=== PATIENT | female | born 1975 | race Caucasian/White ===

== ENCOUNTER 2020-02-15 12:42 | Emergency (ER) | payer OTHER, SELFPAY ==
[2020-02-15 12:51] VITALS: BP 137/90; PULSE 77; RESP 16; TEMP 36.9; O2SAT 100
--- NOTE | 2020-02-15 12:54 | ED.URI ---
HPI - URI/Sore Throat General Chief Complaint: Asthma Stated Complaint: difficulty breathing Time Seen by Provider: 02/15/20 12:54 Source: patient and RN notes reviewed Mode of arrival: ambulatory Limitations: no limitations History of Present Illness HPI Narrative: 45-year-old female who presents to [facility] care with complaints of increased shortness of breath and feelings of tightness for the past 10 days with increase in symptoms for the past 3 days. Patient states that she had covid in December with mainly GI symptoms, fatigue, body aches and loss of taste and smell. Patient states that she has had asthma since she was a child and does have a nebulizer machine at home but has not used it , but for the last 3 days her inhaler has given her less and less relief of asthma symptoms. Patient states that she has worse symptoms at night with noted wheezing then and tightness in chest with breathing. Patient denies any nasal congestion or drainage, no sore throat, fevers, chills or sweats. MD elicited complaint: other (increased dyspnea, wheezing and chest tightness) Pertinent past history: asthma Onset (ago): day(s) () Consistency: progressively worsening (past 3 days) Severity: moderate Description of mucous: clear Able to tolerate fluids by mouth: Yes Exacerbating factors: exertion and deep breaths Relieving factors: other (inhaleer and rest) Associated symptoms: shortness of breath Treatments prior to arrival: other (inhaler) Related Data Home Medications Medication Instructions Recorded Confirmed Ventolin HFA 02/15/20 omeprazole 02/15/20 02/15/20 sertraline mg 02/15/20 Allergies Allergy/AdvReac Type Severity Reaction Status Date / Time No Known Allergies Allergy Unverified 07/30/14 15:03 Review of Systems Review of Systems: Narrative: CONSTITUTIONAL: Denies fever, chills, or sweats. EYES: Denies visual changes, redness, or discharge. ENT: Denies rhinorrhea, congestion, sore throat, or otalgia. CARDIOVASCULAR: Denies chest pain, palpitations, or edema. RESPIRATORY: Positive cough or dyspnea increase GASTROINTESTINAL: Denies abdominal pain, nausea, vomiting, or diarrhea. GENITOURINARY: Denies dysuria or hematuria. SKIN: Denies rash or itching. MUSCULOSKELETAL: Denies back pain, joint pain, or myalgia at present NEUROLOGIC: Denies headache, numbness, or weakness. PSYCHIATRIC:positive history of anxiety or depression. All systems reviewed & are unremarkable except as noted in HPI and below PMFSH Past Medical History Medical History (Updated 02/15/20 @ 13:16 by Sade Light NP) Anxiety and depression Asthma GERD (gastroesophageal reflux disease) Hypothyroid induced hypertension Surgical History Surgical History (Updated 02/15/20 @ 13:01 by Sade Light NP) Hx of cholecystectomy Family History Family History (Updated 02/15/20 @ 13:05 by Sade Light NP) Father Diabetes mellitus Grandparent Cerebrovascular accident Sibling Heart disease Social History Social History (Updated 02/15/20 @ 13:01 by Sade Light NP) Smoking status: Never smoker Alcohol intake: current Substance use: never Living arrangements: with family Gender identity (if verbalized by the patient): Female Comments At time of signature, agree with nursing past medical, surgical, social and family history. There is no relevant family history pertinent to the presenting complaint Exam Narrative: Exam Narrative: GENERAL: Well-appearing, well-nourished, and in no acute distress. HEAD: Normocephalic, atraumatic. EYES: PERRLA and EOMI. ENT: Nares clear, no rhinorrhea or epistaxis. Mucous membranes moist.Tm's normal with good light reflex, throat pink with no exudates or lesions no tonsil enlargement. NECK: Supple.no lymphadenopathy CHEST: Clear to auscultation. No respiratory distress.SAO2 100% , increase tightness with breathing and dyspnea with exertion HEART: Regular rate and rhythm. N
== END 2020-02-15 13:25 | disposition home or self-care (01) ==
PROVIDERS: Emergency Provider Registered Nurse
DX: J45.41 Moderate persistent asthma with (acute) exacerbation (principal); Z86.19 Personal history of other infectious and parasitic diseases; F41.9 Anxiety disorder, unspecified; F32.9 Major depressive disorder, single episode, unspecified; K21.9 Gastro-esophageal reflux disease without esophagitis; E03.9 Hypothyroidism, unspecified
CPT/HCPCS: 99213; G0463

== ENCOUNTER 2021-11-22 09:01 | Emergency (ER) | payer OTHER, SELFPAY ==
--- NOTE | 2021-11-22 09:28 | ED.FEMALEGU ---
HPI - Female Genitourinary General Chief complaint: Urogenital-Female Stated complaint: UTI SYMPTOMS Time Seen by Provider: 11/22/21 09:46 Source: patient, RN notes reviewed and old records reviewed Mode of arrival: ambulatory Limitations: no limitations History of Present Illness HPI Narrative: 46-year-old female presents to the [facility] with complaints of discomfort with urination, suprapubic pain, urinary incontinence last night. Denies any history of UTIs. Denies chest pain or shortness of breath. No CVA tenderness. Denies fevers. MD elicited complaint: UTI Related Data Home Medications Medication Instructions Recorded Confirmed sertraline 100 mg tablet 100 mg PO DAILY 02/15/20 11/22/21 albuterol sulfate 90 mcg/actuation 2 puff inhalation PRN PRN Wheezing 11/22/21 11/22/21 aerosol inhaler omeprazole 40 mg capsule,delayed 40 mg PO DAILY 11/22/21 11/22/21 release Allergies Allergy/AdvReac Type Severity Reaction Status Date / Time No Known Allergies Allergy Verified 11/22/21 09:21 Review of Systems Review of Systems: All systems reviewed & are unremarkable except as noted in HPI and below Constitutional: Constitutional: Reports no additional constitutional complaints, Denies chills and Denies fatigue Eyes: Eyes: Reports no additional eye complaints ENT: Reports system reviewed and no additional complaints, except as documented Cardiovascular: Cardiovascular: Reports no additional cardiovascular complaints Respiratory: Respiratory: Reports no additional respiratory complaints Gastrointestinal: Gastrointestinal: Reports no additional gastrointestinal complaints, Denies abdominal pain, Denies diarrhea, Denies nausea and Denies vomiting Genitourinary: Genitourinary: Reports as per HPI, Reports hematuria, Reports nocturia, Reports dysuria, Denies flank pain and Denies vaginal discharge Musculoskeletal: Musculoskeletal: Reports no additional musculoskeletal complaints and Denies back pain Integumentary/Breasts: Skin/Breast: Reports system reviewed and no additional complaints, except as docu Neurologic: Reports system reviewed and no additional complaints, except as documented Psychiatric: Psychiatric: Reports no additional psychiatric complaints Endocrine: Endocrine: Denies fatigue Allergic/Immunologic: Allergic/Immunologic: Reports no additional allergic/immunologic complaints PMFSH Past Medical History Medical History Anxiety and depression Asthma GERD (gastroesophageal reflux disease) Hypothyroid induced hypertension Surgical History Surgical History Hx of cholecystectomy Family History Family History Father Diabetes mellitus Grandparent Cerebrovascular accident Sibling Heart disease Social History Social History Smoking status: Never smoker Alcohol intake: current Substance use: never Gender identity (if verbalized by the patient): Female Comments At the time of my signature, I reviewed and agree with the nursing past medical, surgical, social, and family history. There is no relevant family history pertinent to the patient complaint. Exam Const: General: healthy appearing, no acute distress and alert Nutritional Appearance: well nourished Orientation/consciousness: patient oriented x3 Limitations: no limitations HENMT: Head: normal to inspection Ears: external ears normal Eyes: Conjunctivae: conjunctivae normal Pupils: Equal, round and reactive pupils present Neck: Neck: normal visual inspection, no lymphadenopathy and no meningeal signs Chest: Chest palpation & inspection: normal inspection of the chest and abnormal inspection of the chest Resp: Effort & Inspection: normal respiratory effort Auscultation: clear to auscultati
[2021-11-22 09:42] VITALS: BP 129/90; PULSE 89; RESP 16; TEMP 37.5; O2SAT 98
== END 2021-11-22 09:56 | disposition home or self-care (01) ==
PROVIDERS: Emergency Provider Nurse Practitioner
DX: N39.0 Urinary tract infection, site not specified (principal); F41.9 Anxiety disorder, unspecified; F32.A Depression, unspecified; J45.909 Unspecified asthma, uncomplicated; K21.9 Gastro-esophageal reflux disease without esophagitis; E03.9 Hypothyroidism, unspecified
CPT/HCPCS: 81003; 87086; 99213; G0463

== ENCOUNTER 2021-12-12 12:39 | Emergency (ER) | payer OTHER, SELFPAY ==
[2021-12-12 12:52] VITALS: BP 114/83; PULSE 96; RESP 18; TEMP 37; O2SAT 98
--- NOTE | 2021-12-12 13:54 | ED.URI ---
HPI - URI/Sore Throat General Chief Complaint: Upper Respiratory Infection Stated Complaint: sore throat Time Seen by Provider: 12/12/21 13:48 Source: patient Mode of arrival: ambulatory Limitations: no limitations History of Present Illness HPI Narrative: Patient presents today with a 2-day history of sore throat. Denies any additional symptoms. Denies difficulty swallowing or shortness of breath. She currently rates her pain 4/10 and has been taking Advil with mild relief. Related Data Home Medications Medication Instructions Recorded Confirmed sertraline 100 mg tablet 100 mg PO DAILY 02/15/20 12/12/21 albuterol sulfate 90 mcg/actuation 2 puff inhalation PRN PRN Wheezing 11/22/21 12/12/21 aerosol inhaler omeprazole 40 mg capsule,delayed 40 mg PO DAILY 11/22/21 12/12/21 release Allergies Allergy/AdvReac Type Severity Reaction Status Date / Time No Known Allergies Allergy Verified 12/12/21 13:04 Review of Systems Review of Systems: CONSTITUTIONAL: Denies body aches, fever, chills, or sweats. EYES: Denies visual changes, redness, or discharge. ENT: Denies rhinorrhea, congestion, or otalgia.+ Sore throat CARDIOVASCULAR: Denies chest pain, palpitations, or edema. RESPIRATORY: Denies cough or dyspnea. GASTROINTESTINAL: Denies abdominal pain, nausea, vomiting, or diarrhea. GENITOURINARY: Denies dysuria or hematuria. SKIN: Denies rash, itching, or wounds. MUSCULOSKELETAL: Denies back pain, joint pain, or myalgia. NEUROLOGIC: Denies headache, numbness, tingling, or weakness. PSYCH: Denies depression or anxiety. [facility] Past Medical History Medical History Anxiety and depression Asthma GERD (gastroesophageal reflux disease) Hypothyroid induced hypertension Surgical History Surgical History Hx of cholecystectomy Family History Family History Father Diabetes mellitus Grandparent Cerebrovascular accident Sibling Heart disease Social History Social History Smoking status: Never smoker Alcohol intake: current Substance use: never Gender identity (if verbalized by the patient): Female Comments At time of signature, I have reviewed and agree with nursing past medical, surgical, social and family history unless otherwise noted. Please see nursing chart for further information. There is no relevant family history pertinent to the presenting complaint Exam Narrative: GENERAL: Well-appearing, well-nourished, and in no acute distress. HEAD: Normocephalic, atraumatic. EYES: EOMI. No redness or drainage. Conjunctivae normal. ENT: Mucous membranes pink and moist. Nares clear. No rhinorrhea. TMs normal bilaterally. Throat mildly erythematous without edema or exudate. Tonsils 2+. Uvula midline. NECK: Normal AROM. Supple. No lymphadenopathy. CHEST: No respiratory distress. Clear to auscultation. HEART: Regular rate and rhythm. No murmur appreciated. Normal peripheral pulses. EXTREMITIES: Normal range of motion. No edema. SKIN: Warm, dry, no rash. Capillary refill normal. Normal skin turgor. NEURO: No focal deficits. Alert and oriented x3. Gait steady. PSYCH: Normal affect. No signs of depression or anxiety. Course Course Level of Care: Express Care Visit Vital Signs Vital signs: Vital Signs Temperature 98.6 F 12/12/21 12:52 Pulse Rate 96 12/12/21 12:52 Respiratory Rate 18 12/12/21 12:52 Blood Pressure 114/83 12/12/21 12:52 Pulse Oximetry 98 12/12/21 12:52 Oxygen Delivery Room Air 12/12/21 12:52 Temperature 98.6 F 12/12/21 12:52 Pulse Rate 96 12/12/21 12:52 Respiratory Rate 18 12/12/21 12:52 Blood Pressure 114/83 12/12/21 12:52 Pulse Oximetry 98 12/12/21 12:52 Oxygen Delivery Room Air 12/12
== END 2021-12-12 13:59 | disposition home or self-care (01) ==
PROVIDERS: Emergency Provider Nurse Practitioner
DX: J02.9 Acute pharyngitis, unspecified (principal); J45.909 Unspecified asthma, uncomplicated; K21.9 Gastro-esophageal reflux disease without esophagitis; E03.9 Hypothyroidism, unspecified; F41.9 Anxiety disorder, unspecified; F32.A Depression, unspecified
CPT/HCPCS: 87081; 87880; 99213; G0463

== ENCOUNTER → 2022-03-06 13:24 | Outpatient (CLI) | payer BC, SELFPAY ==
--- NOTE | ~2022-03-06 | US_ITS ---
EXAMINATION: US pelvic complete DATE: 03/06/2022 13:52 INDICATION: Abnormal uterine bleeding. TECHNIQUE: Multiple transabdominal sonographic images of the pelvis were obtained. COMPARISON: None. FINDINGS: The uterus measures 11.5 x 5.0 x 7.1 cm. There is no free fluid in the pelvis. The endometrial comple x measures 4 mm in thickness. The right ovary measures 4.5 x 3.1 x 3.4 cm. The left ovary measures 4. 5 x 3.2 x 5.0 cm. There is normal vascular flow in the ovaries. IMPRESSION: 1. Normal pelvis. Reviewed, dictated and finalized at location E. COLLECTION SPECIALIST IMPRESSION: 1. Normal pelvis.
--- NOTE | ~2022-03-06 | US_ITS ---
EXAMINATION: US thyroid DATE: 03/06/2022 13:59 INDICATION: Enlarged thyroid. Disorder of thyroid. TECHNIQUE: Multiple ultrasound images of the thyroid were obtained. COMPARISON: None. FINDINGS: The right thyroid lobe measures 5.6 x 1.6 x 1.5 cm. The left thyroid lobe measures 5.1 x 1.3 x 1.3 c m. There is normal echotexture and echogenicity throughout the thyroid gland. No discrete nodules id entified. Normal vascular flow is present. IMPRESSION: 1. Normal thyroid. Reviewed, dictated and finalized at location E. E SUPERINTENDENT IMPRESSION: 1. Normal thyroid.
== END ==
PROVIDERS: PCP Nurse Practitioner; Visit Provider Nurse Practitioner
DX: N93.8 Other specified abnormal uterine and vaginal bleeding (principal); N92.1 Excessive and frequent menstruation with irregular cycle; E07.9 Disorder of thyroid, unspecified
CPT/HCPCS: 76536; 76856

== ENCOUNTER 2022-05-13 02:19 | Day surgery (SDC) | payer BC, SELFPAY ==
[2022-04-30 14:45] VITALS: BMI 38.7
--- NOTE | 2022-04-30 14:51 | PC.NURSE ---
Report to the Outpatient Waiting Room, entrance under the green pavilion located off [facility], at time 0730 on date 05/13/22. Planned Procedure Time: 0930. Time changes happen often and if your time is changed the preop area will call you the afternoon before. - You and your visitor will be asked to self-screen and do not enter if you have any COVID symptoms. - Only one visitor is requested with a max of two and NO children visitors are allowed at this time. - The patient visitor may be requested to leave or wait in car when not with patient due to distancing restrictions. - A mask is optional within the hospital at this time. Patients may have clear liquids (water, carbonated beverages, clear teas, apple juice) until 3 hours prior to surgery with a maximum of 20 ounces. - No food from midnight until time of surgery Take the following medications with a SIP of water the morning of surgery: INHALER IF NEEDED DO NOT STOP ANY OF YOUR OTHER PRESCRIPTION MEDICATIONS PRIOR TO SURGERY EXCEPT THE FOLLOWING Medications to discontinue per physician: N/A Date to take last dose: N/A Please no make-up, nail macedonian, hairspray, perfume, deodorant, or body powder the day of surgery. No jewelry (including any body piercings) or valuables the day of surgery, leave them at home. Please take a shower or bath the night before, or the morning of, surgery with an antibacterial soap. Wear comfortable, loose fitting clothing. - Jewelry must be removed prior to entering the operating room. Rings and piercings that are not removed may be cut off. - The hospital will not accept responsibility for valuables. - Please leave all valuables, including medications, at home the day of surgery. If you are going home after surgery, a licensed truck driver instructor must drive you home. - NO public transportation without another adult if you receive anesthesia. - We recommend that an adult stay with you for 24 hours following discharge. - We also recommend that you do not drive, make important decision, drink alcoholic beverages, or take any drugs that were not prescribed by your health care provider for at least 24 hours after your discharge time. Follow any additional instructions given to you from your surgeon. If you or anyone in your household have experienced Covid symptoms in the past week, please notify your surgeon or the nurse liaison at the phone number below for possible testing. Telephone instructions given to PT - CISCO PARKER and asked if any additional questions and then verbalized understanding. Patient advised to call surgeon office or pre surgery nurse liaison [phone] if any additional questions.
[2022-05-13] VITALS (8 sets, daily range): BP systolic 116–154; BP diastolic 67–90; PULSE 77–92; RESP 10–20; TEMP 36.6–37.1; O2SAT 92–100
--- NOTE | 2022-05-13 07:22 | WPDHPUPDATE1 ---
History and Physical Update Update Date/Time: 05/13/22 07:22 History and Physical has been reviewed, including an updated exam of the patient. There are NO changes in the patient's condition. Risks, benefits, and alternatives have been discussed and questions answered. Patient agrees to proceed with procedure.
--- NOTE | 2022-05-13 07:22 | PM.HPGS ---
History of Present Illness History of Present Illness Consent: Risks, benefits, and alternatives have been discussed and questions answered. Patient agrees to proceed with procedure. Chief complaint: Desire Sterilizaton Menorrhagia Narrative: Cipriano Price is a 47 year old female with menorrhagia has elected to proceed with endometrial ablation with Makenna device. In addition, the patient undergo sterilization by laparoscopic bilateral salpingectomies. The risks of the procedure are reviewed including infection, bleeding, perforation, ablation failure, and tubal failure with increased risk of ectopic. Patient voices understanding and agrees to proceed. Review of Systems Review of Systems: not repeated day of surgery; patient states no changes in status PMFSH Past Medical History Medical History (Updated 05/13/22 @ 07:26 by Joyce Kim MD) Anxiety and depression Asthma GERD (gastroesophageal reflux disease) Hypothyroid (normal spontaneous vaginal delivery) x3 Retinitis pigmentosa Surgical History Surgical History (Updated 05/13/22 @ 07:25 by Joyce Kim MD) History of hysteroscopy February 2022 Hx of cholecystectomy Family History Family History Father Diabetes mellitus Grandparent Cerebrovascular accident Sibling Heart disease Social History Social History Smoking packs per day: 1 Smoking cigarettes per day: 20.0 Years smoked: 6 Smoking pack-years: 6.00 Smoking status: Former smoker Tobacco type: cigarettes Smoking end date: 02/24/06 Alcohol intake: current Alcohol use details: RARE Substance use: never Substance use type: does not use Living arrangements: with family Gender identity (if verbalized by the patient): Female Spiritual care concerns: No Meds Home Medications and Allergies Home Medications Medication Instructions Recorded Confirmed Type sertraline 100 mg tablet 100 mg PO HS 02/15/20 04/30/22 History albuterol sulfate 90 mcg/actuation 2 puff inhalation PRN PRN Wheezing 11/22/21 04/30/22 History aerosol inhaler omeprazole 40 mg capsule,delayed 40 mg PO HS 11/22/21 04/30/22 History release Allergies Allergy/AdvReac Type Severity Reaction Status Date / Time No Known Allergies Allergy Verified 03/07/23 14:44 Exam Const: General: healthy appearing and alert Orientation/consciousness: patient oriented x3 Resp: Effort & Inspection: normal respiratory effort Auscultation: clear to auscultation bilaterally Cardio: Rate: regular rate Rhythm: regular rhythm GI: GI Palp: Yes Soft to palpation, No Tenderness to palpation present (GI) and No Palpable mass present : External Female Exam: normal external appearance Speculum Exam - Vagina: normal appearance of the vagina and normal vaginal discharge Speculum Exam - Cervix: normal appearance of the cervix Bimanual exam- vagina & uterus: uterine size normal and consistency normal Bimanual Exam- Adnexa, other: normal adnexae and No adnexal tenderness Neuro: General: patient oriented x3 Assessment and Plan Assessment and plan (1) Menorrhagia: Code(s): N92.0 - Excessive and frequent menstruation with regular cycle Status: Acute Assessment and Plan: plan to proceed with Makenna endometrial ablation (2) Encounter for sterilization: Code(s): Z30.2 - Encounter for sterilization Status: Acute Assessment and Plan: plan to proceed with bilateral laparoscopic salpingectomies
[2022-05-13] MEDS: ACETAMINOPHEN 500 MG TABLET 1000 MG PO (08:30)
[2022-05-13] MEDS: KETOROLAC 15 MG/ML VIAL (*BKC) IV PUSH (08:30)
[2022-05-13] MEDS: LACTATED RINGERS 1,000 ML 30 ML IV CONT ×2 (08:32→11:14)
--- NOTE | 2022-05-13 09:46 | WPDANESEPPF ---
Anes - Initial Pre Proc Eval Procedure: Operation Date: 05/13/22 09:30 Proposed Procedures p Laparoscopic Bilateral Salpingectomy, Hysteroscopy with Makenna Endometrial Ablation - Joyce Kim MD Date/Time: 05/13/22 09:46 Surgeon: Joyce Kim MD Pre Op Diagnosis: Desire Sterilizaton Menorrhagia Patient Data Age: 47 Gender: F Height: 1.73 m Weight: 115.4 kg Last Vital Signs Temp 37.1 C 05/13/22 08:35 Pulse 92 05/13/22 08:35 Resp 18 05/13/22 08:35 BP 131/75 05/13/22 08:35 Pulse Ox 97 05/13/22 08:35 O2 Del Method Room Air 05/13/22 08:35 Allergies Allergy/AdvReac Type Severity Reaction Status Date / Time No Known Allergies Allergy Verified 05/13/22 08:30 Home Medications Medication Instructions Recorded Confirmed Type sertraline 100 mg tablet 100 mg PO HS 02/15/20 05/13/22 History albuterol sulfate 90 mcg/actuation 2 puff inhalation PRN PRN Wheezing 11/22/21 05/13/22 History aerosol inhaler omeprazole 40 mg capsule,delayed 40 mg PO HS 11/22/21 05/13/22 History release Patient hx anesthesia problems: none Family hx anesthesia problems: none Results Review: All pre-operative results and documents have been reviewed as part of the pre-operative evaluation. [facility] Past Medical History Medical History Anxiety and depression Asthma GERD (gastroesophageal reflux disease) Hypothyroid (normal spontaneous vaginal delivery) x3 Retinitis pigmentosa Surgical History Surgical History History of hysteroscopy February 2022 Hx of cholecystectomy Family History Family History Father Diabetes mellitus Grandparent Cerebrovascular accident Sibling Heart disease Social History Social History Smoking packs per day: 1 Smoking cigarettes per day: 20.0 Years smoked: 6 Smoking pack-years: 6.00 Smoking status: Former smoker Tobacco type: cigarettes Smoking end date: 02/24/06 Alcohol intake: current Alcohol use details: RARE Substance use: never Substance use type: does not use Living arrangements: with family Gender identity (if verbalized by the patient): Female Spiritual care concerns: No Anes - Eval Final PreProcedure Day of Procedure 05/13/22 09:46 Patient weight: obese Heart: regular rate and rhythm Lungs: clear to auscultation Airway: Mallampati scale class II Neurological: alert and oriented Last oral intake: >/= 8 hours ASA classification: III Emergent: no Anesthetic plan: proceed Anesthesia type and monitoring: general ETT and standard monitoring Results Review: All pre-operative results and documents have been reviewed as part of the pre-operative evaluation. Informed Consent: The patient's anesthetic plan and its attendant risks and benefits were discussed with the patient/family/POA. Questions were solicited and answers provided to the satisfaction of the patient/family/POA.
--- NOTE | 2022-05-13 11:07 | P.OP_ITS ---
Procedure Note - Detailed Date of Procedure 05/13/22 Pre-op Diagnosis Desire Sterilizaton And Menorrhagia Post-op Diagnosis Same Procedure Performed hysteroscopy with myomectomy and endometrial ablation with Makenna laparoscopic bilateral salpingectomies Surgeon Joyce Kim MD Anesthesia General Findings posterior fibroid noted otherwise normal appearing endometrium normal-appearing tubes and right ovary 2 small 1cm cysts on the left ovary Description of Procedure The patient was taken to the operating room placed under anesthesia in the dorsal lithotomy position. The patient had just voided prior to arriving in the operating room therefore straight catheterization was not performed. She was prepped and draped in the usual sterile fashion. [place] speculum was placed in the vagina and the cervix grasped on the anterior lip with a tenaculum. Uterus sounded to 9cm. The diagnostic hysteroscope was placed with the above-stated findings. The Aveeta resection blade was placed and the fibroid removed in its entirety. The hysteroscope was then removed and the Makenna device opened and placed. Cavity assessment passed on the 1st attempt with a setting of 6cm. Treatment cycle lasted the entire 2minutes. Hysteroscope was replaced with a good ablation effect noted. The acorn manipulator was placed and the speculum removed. Attention was then turned to the abdomen. There is scarring in the center of the umbilicus therefore a slightly off center right at the local incision is made with a scalpel. The abdomen is tented with towel clamps and the Veress needle placed. Opening patient pressure is 4mmHg with a normal water drop test. The pneumoperitoneum was obtained to a patient pressure of 15. The 5mm trocar Optiview was placed and intra-abdominal placement was confirmed with the laparoscope. The patient was placed in Trendelenburg and 2 incisions were made 1cm above the symphysis pubis 1 to the left and 1 to the right. The 5mm trocars were placed under direct visualization. The blunt probe was used to bring the tubes into the operative view with the above-stated findings. The left tube was grasped at the fimbriated end an atraumatic grasper and the LigaSure was used to cauterize and cut the medial salpinx until the cornu was reached in then approximated leaving 1cm the tube was cross clamped, cauterized, and cut. The identical procedure was performed on the opposite side. Good hemostasis is noted at all pedicles. The tubes are 2 fat to fit through the trocars so they are removed 1 in each port intact. The midline port is then removed after releasing the CO2. Skin incisions are then closed using 4-0 nylon in an interrupted fashion. Vaginal instruments are removed. The patient is awakened from anesthesia and the sponge, needle, and instrument counts are correct per the OR staff. Estimated Blood Loss 5 Drains No Packing No Pathology Yes ( Endometrial shavings of fibroid; bilateral tubes) Complications No immediate complications Condition Stable Disposition PACU
[2022-05-13] MEDS: fentaNYL CITRATE INJ (*CRX) 100 MCG/2 ML VIAL 25 MCG IV PUSH ×8 (11:25→11:53)
[2022-05-13] MEDS: ONDANSETRON INJ 4 MG/2 ML VIAL IV PUSH (11:29)
[2022-05-13] MEDS: oxyCODONE HCL (*CRX) 5 MG TAB IR PO (12:40)
== END 2022-05-13 13:10 | disposition home or self-care (01) ==
PROVIDERS: Visit Provider Obstetrics & Gynecology Gynecology
PROC: 0UDB8ZZ Extraction of Endometrium, Via Natural or Artificial Opening Endoscopic (ICD-10-PCS; CPT 58558; principal; 2022-05-13 09:30)
DX: Z30.2 Encounter for sterilization (principal); N92.0 Excessive and frequent menstruation with regular cycle; N83.202 Unspecified ovarian cyst, left side; D25.9 Leiomyoma of uterus, unspecified; J45.909 Unspecified asthma, uncomplicated; K21.9 Gastro-esophageal reflux disease without esophagitis; F41.8 Other specified anxiety disorders; Z87.891 Personal history of nicotine dependence; Z79.51 Long term (current) use of inhaled steroids
CPT/HCPCS: 58661; 58563; 58561; 88302; 88305; A9270; J1100; J1885; J2250; J2405; J2704; J3010; J7120